=== PATIENT | male | born 1945 | race Two or more races ===

== ENCOUNTER 2019-09-17 11:01 | Day surgery (SDC) | payer OTHER | END 2019-09-18 16:00 | disposition home or self-care (01) | LOC: AMB-ENDOS 11:01 → ADM 13:15 → AMB-ENDOS 13:15 | DX: D12.0 Benign neoplasm of cecum (principal); D12.5 Benign neoplasm of sigmoid colon ==

== ENCOUNTER 2020-10-20 06:48 | Day surgery (SDC) | payer OTHER | END 2020-10-20 10:50 | disposition home or self-care (01) | LOC: AMB-ENDOS 06:48 | PROVIDERS: ATTEND Surgery | DX: D12.5 Benign neoplasm of sigmoid colon (principal); Z20.822 Contact with and (suspected) exposure to COVID-19 ==